=== PATIENT | male | born 1970 | race Caucasian/White ===

== ENCOUNTER 2016-12-21 00:46 | Inpatient (IN) | payer OTHER ==
[~2016-12-21] VITALS: Ht 166.4 cm; Wt 70.5 kg
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
--- NOTE | ~2016-12-21 | DS ---
Unit #: [id number] #: [id number] Patient: OLGA SUH [id number] [address] [place], [place] [address] [id number] I MR#: [id number] NAME: OLGA SUH ROOM: [facility] Age: 46 Sex: M Admission Date: 12/21/2016 : 1970 Discharge Date: Attending Physician: Svitalna Oliveira M.D. DISCHARGE SUMMARY DISCHARGE DIAGNOSES 1. Left tibia/fibula fracture, closed, status post intramedullary jayson. 2. Hypoglycemia. 3. Diabetes mellitus type 1, uncontrolled. 4. Hypertension. 5. Hyperlipidemia. CONSULTATION Dr. Melgar. PROCEDURE Patient had intramedullary jayson in the left tibia. DIAGNOSTIC STUDIES LABORATORY: Glucose 216. WBC 11.6, hemoglobin 13.3, platelets 182,000. Creatinine 0.9. ALLERGIES None. DISCHARGE MEDICATIONS 1. Simvastatin 40 daily. 2. Lisinopril 2.5 p.o. daily. 3. Lantus 15 units subcutaneous at bedtime. 4. Aspirin 325 p.o. b.i.d. as per orthopedics. 5. [place] 10 mg p.o. q.4 p.r.n. pain. 6. Protonix 40 p.o. b.i.d. HOSPITALIZATION COURSE A 46 year old admitted with hypoglycemia and fall. Left tibial fracture after fall: Patient is seen by orthopedics. Patient had intramedullary rodding. Currently, patient is seen by physical therapy. They are okay for the patient to be discharged home. Orthopedics will discharge the patient home. Patient will continue with De Witt and aspirin as per orthopedics and follow with Dr. Melgar in two weeks' time. Diabetes mellitus type 1 with severe hypoglycemia on admission. The patient received D5. Currently eating okay. Blood sugars are around 200. Continue with insulin but lower dose and follow with PCP. DISPOSITION Discharge home. Unit #: [id number] #: [id number] Patient: OLGA SUH FOLLOWUP Follow with Dr. Melgar in two weeks' time. Dictated by... Jovi Tom/chely TD: 12/23/2016 17:16 JOB #: [id number] DISCHARGE SUMMARY Page 1 of 1 X Svitlana Oliveira MD DISCHARGE SUMMARY
--- NOTE | ~2016-12-21 | EKG ---
PATIENT: OLGA SUH UNIT #: [id number] Ventricular Rate: 95 BPM Atrial Rate: 95 BPM P-R Interval: 146 ms QRS Duration: 82 ms Q-T Interval: 346 ms QTC Calculation(Bezet): 434 ms P [place]: 67 degrees Calculated R [place]: 39 degrees Calculated T [place]: 46 degrees Diagnosis Line: Normal sinus rhythm Diagnosis Line: Normal ECG Diagnosis Line: No previous ECGs available Diagnosis Line: Confirmed by DMITRIY RASHID MD ([id number]) on 12/21/2016 Diagnosis Line: 7:56:32 PM INTERPRETING MD: GAY JANE
--- NOTE | ~2016-12-21 | CR252 ---
[facility] [place] [facility] TEXT RESULTS PATIENT: OLGA SUH LOCATION: [facility] 468-01 : [birth year] UNIT #: [id number] AGE: [address]: Svitlana Oliveira MD SEX: M ORDER DR: [id number] [facility]. [place], [place] [address] [id number] I MR#: [id number] Acc #: [id number] NAME: OLGA SUH : 1970 SEX: M STUDY DATE/TIME: 12/21/2016 1155 UNIT: [facility] ROOM: [facility] STUDY DESCRIPTION: CR Tibia and Fibula 2 Views Lt Attending Physician: Svitlana Oliveira M.D. Ordering Physician: Nikolai Melgar M.D. MEDICAL IMAGING REPORT This report is preliminary unless electronic signature is present EXAM Intraoperative views of the tibia and fibula, 12/21/2016, 1155 hours. CLINICAL HISTORY History of fracture tibia-fibula 12/20/[address] Melgar. COMPARISON 12/20/2016 FINDINGS Submitted for interpretation are 5 intraoperative views demonstrating ORIF of fracture through the tibia by Dr. Melgar. Fluoroscopy time 1 minute and 5 seconds. Dose is not recorded on the images. Images demonstrate an intramedullary nail extending the full shaft of the tibia with a transverse screw proximally and distally. The alignment is anatomic. The proximal fibular fracture is nondisplaced. IMPRESSION Five intraoperative views demonstrate placement of an intramedullary nail through the fracture at the junction of the middle and distal third of the tibia with anatomic alignment. Proximal fibular fracture is unchanged and normally aligned. Dictated by... Lilia Ayala M.D. THIS IS AN ELECTRONICALLY VERIFIED REPORT Lilia Ayala M.D. at 12/22/2016 9:27 AM FABIOLA/stefano [facility] A Service of [facility] RADIOLOGY TEXT RESULTS PATIENT: OLGA SUH LOCATION: [facility] 468-01 : [birth year] UNIT #: [id number] AGE: [address]: Svitlana Oliveira MD SEX: M ORDER DR: TD: 12/21/2016 20:34 JOB #: [id number] MEDICAL IMAGING REPORT Page 1 of 1 COPY
--- NOTE | ~2016-12-21 | CR72 ---
[facility] A Service of [facility] RADIOLOGY TEXT RESULTS PATIENT: OLGA SUH LOCATION: [facility] 468-01 : 71 UNIT #: [id number] AGE: [address]: Svitlana Oliveira MD SEX: M ORDER DR: [id number] [facility] [address] [facility]. [place], [place] [address] [id number] I MR#: [id number] Acc #: [id number] NAME: OLGA SUH : 1970 SEX: M STUDY DATE/TIME: 12/21/2016 8:19 UNIT: [facility] ROOM: [facility] STUDY DESCRIPTION: CR Chest Single View Portable Attending Physician: Svitlana Oliveira M.D. Ordering Physician: Silvia Snider MEDICAL IMAGING REPORT This report is preliminary unless electronic signature is present EXAM Portable chest. INDICATIONS Preop clearance for left tibia-fibula fracture. COMPARISON 05/31/2016. FINDINGS Lungs are well expanded. There is no airspace consolidation. Heart size is normal. IMPRESSION No active disease. Dictated by... Yariel Jenkins M.D. THIS IS AN ELECTRONICALLY VERIFIED REPORT Yariel Jenkins M.D. at 12/22/2016 6:59 AM ARS/gz TD: 12/21/2016 13:37 JOB #: [id number] MEDICAL IMAGING REPORT Page 1 of 1 COPY
--- NOTE | ~2016-12-21 | OR ---
Unit #: [id number] #: [id number] Patient: OLGA SUH [id number] [address] [place], [place] [address] [id number] I MR#: [id number] NAME: OLGA SUH ROOM: 468 Date of Procedure: 12/21/2016 Admission Date: 12/21/2016 Surgeon: Nikolai Melgar M.D. : 1970 Attending Physician: Svitlana Oliveira M.D. OPERATIVE REPORT PREOPERATIVE DIAGNOSIS Left closed tib-fib fracture. POSTOPERATIVE DIAGNOSIS Left closed tib-fib fracture. DESCRIPTION OF PROCEDURE Intramedullary rodding, left tibia. [employer] Mary Guerra. ANESTHESIA General. ESTIMATED BLOOD LOSS 50 mL. DESCRIPTION OF PROCEDURE The patient was brought to the holding room, given appropriate IV antibiotics. After this was done, he was brought back to the operating room, given a general anesthetic. Tourniquet placed around the left thigh. The left leg was prepped and draped in a sterile fashion. We then made a small incision over the infrapatellar tendon. The tendon was split and the awl was used to enter the proximal tibia. Once this was in place, the guide jayson was placed down the tibia and across the fracture. The fracture reduced appropriately with longitudinal traction. Once the guide jayson was in position, it was measured and we found we needed a 315 mm length nail. We then reamed the tibia up to a 10.5 and placed a 9 mm x 315 mm IM nail across the fracture. The fracture reduced almost anatomically. We then placed one proximal locking screw 5 x 50 and one distal locking screw 5 x 35 mm. The C-arm showed appropriate reduction of the fracture on AP and lateral views and appropriate position of the hardware on AP and lateral views. The wound was irrigated out. The patellar tendon was reapproximated using 0 Vicryl interrupted. The subcutaneous was closed with 2-0 Vicryl, evelin in the incision proximally and evelin in the [address] a locking screws. The tourniquet had been released prior to closure. Sterile dressing was applied and the general anesthetic was reversed. He was transferred to the recovery room. wellness assistant, Mary Guerra, was present throughout the entire case. Unit #: [id number] #: [id number] Patient: OLGA SUH Dictated by... Jovi Hui/yanni TD: 12/21/2016 15:01 JOB #: [id number] OPERATIVE REPORT Page 1 of 1 X Nikolai Melgar MD PROCEDURE OPERATIVE NOTE
--- NOTE | ~2016-12-21 | CO ---
Unit #: [id number] #: [id number] Patient: OLGA SUH [id number] [facility] [address] [facility]. [place], [place] [address] [id number] I MR#: [id number] NAME: OLGA SUH ROOM: 468 Age: 46 Sex: M Admission Date: 12/21/2016 : 1970 Attending Physician: Svitlana Oliveira M.D. CONSULTATION REPORT REASON FOR CONSULTATION Left tib-fib fracture. HISTORY OF PRESENT ILLNESS The patient is a very pleasant 46 year old who presented today to [facility], and we were consulted for a left tib-fib fracture. The consult was put in by Dr. Natarajan. The patient reports he fell last evening when his blood glucose dropped. The patient reports he was at home getting ready to go to bed about 8 o'clock last night. Since then, he has had severe pain in his left lower extremity. He rates his pain as 10 on a scale of 1-10. He denies any numbness, tingling, fever or chills. PAST MEDICAL HISTORY 1. Hypertension. 2. Hyperlipidemia. 3. Reflux. PAST SURGICAL HISTORY 1. Right lower extremity surgery. 2. Left foot surgery. ALLERGIES No known drug allergies. MEDICATIONS Not reconciled at this point. SOCIAL HISTORY The patient admits to tobacco but denies any illegal drug use or alcohol. REVIEW OF SYSTEMS CONSTITUTIONAL: Denies any weight gain or weight loss. EYES: Denies any double vision or blurred vision. LUNGS: Denies any shortness of air or chronic cough. CARDIOVASCULAR: Denies chest pain or irregular heartbeat. ABDOMEN: Denies any nausea or vomiting. MUSCULOSKELETAL: Admits to severe pain in his left lower extremity. NEUROLOGIC: Denies any numbness, tingling or headaches. PHYSICAL EXAMINATION GENERAL: He is well developed, well nourished, no acute distress. VITAL SIGNS: His temperature is 98.3, blood pressure 133/85, heart rate 80 and regular, respirations 18. HEENT: Normocephalic, atraumatic. PERRLA. Extraocular movements intact. Unit #: [id number] #: [id number] Patient: OLGA SUH Conjunctivae clear. NECK: His neck was supple. No thyromegaly. RESPIRATORY: His lungs were clear to auscultation. No accessory muscle use. Equal expansion bilaterally. CARDIOVASCULAR: S1, S2. ABDOMEN: Soft, nontender, nondistended. Positive bowel sounds. MUSCULOSKELETAL: Gait not appreciated. Examination of the patient's left lower extremity reveals he does have swelling of his left lower extremity. Does have posterior splint. He had 2+ pulses in his left lower extremity. He was able to wiggle all of his toes and move his left ankle and left knee. His Homans sign was negative. SKIN: Warm and dry. No rashes, lesions or ulcers other than noted above. EXTREMITIES: No clubbing, cyanosis or edema, other than noted above. NEUROLOGIC: Limited orthopedic exam. Was able to move all 4 extremities. DIAGNOSTIC STUDIES IMAGING: X-rays of his left tibia and fibula do show displaced fracture of his tibia. Chest x-ray - None. LABS: None. CARDIOVASCULAR: EKG - None. ASSESSMENT Left tibia and fibula fracture. PLAN We plan on intramedullary nail in his left tibia later today. I did explain the risks and expected outcomes. The risks do include blood clot, infection, neurovascular deficit, nonunion and even . The patient completely understands and wishes to proceed. We will go ahead and get a chest x-ray STAT, an EKG STAT, CBC, CMP, PT and INR, all STAT, and plan for surgery later today. Dictated by... Noel Heredia P.A.-C- for Jovi Hui/jay jay TD: 12/21/2016 09:51 JOB #: [id number] CONSULTATION REPORT Page 1 of 1 X X CONSULTATION REPORT
[2016-12-21 08:16] LABS: BASOPHIL# 0.1 X10e3 (0-0.3); BASOPHIL% 0.6 % (0-2.5); DIFF IND NO; EOSINOPHIL# 0.2 X10e3 (0-0.7); EOSINOPHIL% 1.2 % (0.0-7.0); HEMATOCRIT 41.5 % (38.0-50.0); HEMOGLOBIN 14.2 gm/dL (13.0-16.0); LYMPHOCYTE# 2.7 X10e3 (1.0-3.5); LYMPHOCYTE% 18.5 % (17.0-45.0); MEAN CELL VOLUME 91.7 FL (83-96); MEAN CORPUSCULAR HEMOGLOBIN 31.4 PG (28-34); MEAN CORPUSCULAR HGB CONC 34.2 g/dL (30-36); MEAN PLATELET VOLUME 7.9 FL (6.5-11.5); MONOCYTE# 1.3 X10e3 (0-1.0); MONOCYTE% 8.7 % (3.0-12.0); NEUTROPHIL# 10.4 X10e3 (1.5-7.1); PLATELET COUNT 194 X10e3 (140-420); RED BLOOD COUNT 4.53 X10e (3.90-5.60); RED CELL DISTRIBUTION WIDTH 13.5 % (11.0-15.5); WHITE BLOOD COUNT 14.7 X10e3 (4.0-10.5)
[2016-12-21 08:38] LABS: ALBUMIN SERUM 4.1 g/dL (3.5-5.0); BILIRUBIN,TOTAL 1.2 mg/dL (0.2-2.0); BUN/CREATININE RATIO 11.11; CREATININE SERUM 0.9 mg/dL (0.6-1.4); GLOM FILT RATE Estimated 102.8 mL/min (>60); POTASSIUM 3.9 mmol/L (3.5-5.1); PROTEIN TOTAL SERUM 6.6 g/dL (6.0-8.3)
[2016-12-21 09:01] LABS: PROTHROMBIN TIME (PATIENT) 11.3 SECONDS (10.0-11.7)
[2016-12-21 12:31] LABS: AMPHETAMINE NEG (NEG); BARBITURATES NEG (NEG); BENZODIAZEPINES NEG (NEG); COCAINE NEG (NEG); MARIJUANA NEG (NEG); OPIATES POS (NEG); TRICYCLIC ANTIDEPRESSANTS NEG (NEG); U METHADONE NEG (NEG)
[2016-12-21] MEDS ORDERED: PROTONIX PO (14:32)
[2016-12-21] MEDS ORDERED: ZOCOR PO (14:33)
[2016-12-21] MEDS ORDERED: LISINOPRIL2.5 MG PO (14:33)
[2016-12-21] MEDS ORDERED: LANTUS100 UNITS/ SUBQ (14:35)
[2016-12-21] MEDS ORDERED: LANTUS100 U/ML SUBQ (14:39)
[2016-12-22 04:04] LABS: BASOPHIL# 0.1 X10e3 (0-0.3); BASOPHIL% 0.8 % (0-2.5); EOSINOPHIL% 0.3 % (0.0-7.0); HEMATOCRIT 38.6 % (38.0-50.0); HEMOGLOBIN 12.9 gm/dL (13.0-16.0); LYMPHOCYTE# 1.8 X10e3 (1.0-3.5); LYMPHOCYTE% 13.7 % (17.0-45.0); MEAN CELL VOLUME 92.7 FL (83-96); MEAN CORPUSCULAR HEMOGLOBIN 30.9 PG (28-34); MEAN CORPUSCULAR HGB CONC 33.4 g/dL (30-36); MEAN PLATELET VOLUME 8.4 FL (6.5-11.5); MONOCYTE# 1.3 X10e3 (0-1.0); MONOCYTE% 10.2 % (3.0-12.0); NEUTROPHIL# 9.7 X10e3 (1.5-7.1); PLATELET COUNT 180 X10e3 (140-420); RED BLOOD COUNT 4.16 X10e (3.90-5.60); RED CELL DISTRIBUTION WIDTH 13.3 % (11.0-15.5); WHITE BLOOD COUNT 12.9 X10e3 (4.0-10.5)
[2016-12-22 04:06] LABS: DIFF IND NO
[2016-12-22 04:29] LABS: CALCIUM SERUM 8.8 mg/dL (8.4-10.2); CREATININE SERUM 0.9 mg/dL (0.6-1.4); GLOM FILT RATE Estimated 102.8 mL/min (>60); POTASSIUM 4.2 mmol/L (3.5-5.1)
[2016-12-23 03:07] LABS: BASOPHIL# 0.1 X10e3 (0-0.3); BASOPHIL% 0.9 % (0-2.5); EOSINOPHIL# 0.2 X10e3 (0-0.7); EOSINOPHIL% 1.3 % (0.0-7.0); HEMATOCRIT 40.2 % (38.0-50.0); HEMOGLOBIN 13.3 gm/dL (13.0-16.0); LYMPHOCYTE# 2.5 X10e3 (1.0-3.5); LYMPHOCYTE% 21.9 % (17.0-45.0); MEAN CORPUSCULAR HEMOGLOBIN 30.8 PG (28-34); MEAN CORPUSCULAR HGB CONC 33.2 g/dL (30-36); MEAN PLATELET VOLUME 8.4 FL (6.5-11.5); MONOCYTE# 1.3 X10e3 (0-1.0); MONOCYTE% 11.1 % (3.0-12.0); NEUTROPHIL# 7.5 X10e3 (1.5-7.1); NEUTROPHIL% 64.8 % (40-75); PLATELET COUNT 182 X10e3 (140-420); RED BLOOD COUNT 4.32 X10e (3.90-5.60); RED CELL DISTRIBUTION WIDTH 13.3 % (11.0-15.5); WHITE BLOOD COUNT 11.6 X10e3 (4.0-10.5)
[2016-12-23 03:09] LABS: DIFF IND NO
[2016-12-23] MEDS ORDERED: LORCET HD 10-31 EACH PO (16:14)
[2016-12-23] MEDS ORDERED: ST. JOSEPH ASP325 MG PO (16:14)
== END 2016-12-23 17:27 | disposition home or self-care (01) | DRG 494 ==
LOC: CEDOF 00:46 → C4C 01:00 → CEDOF 01:00 → C4C 04:20 → CEDOF 04:20 → C4C 07:32
PROVIDERS: Internal Medicine; Orthopaedic Surgery; Physician Assistant
PROC: 0QSH36Z Reposition Left Tibia with Intramedullary Internal Fixation Device, Percutaneous Approach (ICD-10-PCS; principal; 2016-12-21 11:00)
DX: S82.202A Unspecified fracture of shaft of left tibia, initial encounter for closed fracture (principal); E10.649 Type 1 diabetes mellitus with hypoglycemia without coma; I10 Essential (primary) hypertension; S82.402A Unspecified fracture of shaft of left fibula, initial encounter for closed fracture; W01.0XXA Fall on same level from slipping, tripping and stumbling without subsequent striking against object, initial encounter; Y92.019 Unspecified place in single-family (private) house as the place of occurrence of the external cause; E78.5 Hyperlipidemia, unspecified; Z83.3 Family history of diabetes mellitus
CPT/HCPCS: 71010; 73590; 76001; 80048; 80053; 80307; 82947; 85025; 85610; 93005; 94010; 97110; 97116; 97161; 97165; 97530; 97535; C1713; G0480; G8978-GP; G8979-GP; G8987-GO; G8988-GO; J0690; J1170; J1815; J2250; J2270; J2405; J3010